=== PATIENT | female | born 1965 | race African-American/Black ===

== ENCOUNTER 2020-02-22 04:19 | Emergency (ER) | payer OTHER ==
[~2020-02-22] VITALS: Ht 157.5 cm; Wt 64.9 kg
[2020-02-22 05:08] VITALS: BP 124/79
[2020-02-22] MEDS ORDERED: PERCOCET 5-3251 EACH PO (05:14)
== END 2020-02-22 05:26 | disposition home or self-care (01) ==
LOC: ER 04:19
DX: S92.502A Displaced unspecified fracture of left lesser toe(s), initial encounter for closed fracture (principal); I10 Essential (primary) hypertension; F17.210 Nicotine dependence, cigarettes, uncomplicated; Z90.89 Acquired absence of other organs; Z98.890 Other specified postprocedural states; Z98.51 Tubal ligation status; Z86.73 Personal history of transient ischemic attack (TIA), and cerebral infarction without residual deficits; Z88.2 Allergy status to sulfonamides; W22.09XA Striking against other stationary object, initial encounter; Y93.89 Activity, other specified; Y92.89 Other specified places as the place of occurrence of the external cause; Y99.8 Other external cause status

== ENCOUNTER 2020-06-19 05:28 | Emergency (ER) | payer OTHER ==
[~2020-06-19] VITALS: Ht 157.5 cm; Wt 62.1 kg
[~2020-06-19 05:28] MED LIST: PERCOCET 5-3251 EACH PO
[2020-06-19 05:31] VITALS: BP 127/79
[2020-06-19] MEDS ORDERED: DOXYCYCLINE 10100 MG PO (05:53)
[2020-06-19] MEDS ORDERED: PREDNISONE50 MG PO (05:53)
== END 2020-06-19 06:12 | disposition home or self-care (01) ==
LOC: ER 05:28
DX: L73.9 Follicular disorder, unspecified (principal); I10 Essential (primary) hypertension; Z86.73 Personal history of transient ischemic attack (TIA), and cerebral infarction without residual deficits; Z98.51 Tubal ligation status; Z90.89 Acquired absence of other organs; Z79.2 Long term (current) use of antibiotics; Z79.899 Other long term (current) drug therapy; Z88.2 Allergy status to sulfonamides

== ENCOUNTER 2020-10-19 16:43 | Emergency (ER) | payer OTHER ==
[~2020-10-19] VITALS: Ht 157.5 cm; Wt 59.0 kg
[~2020-10-19 16:43] MED LIST changes: +DOXYCYCLINE 10100 MG PO; +PREDNISONE50 MG PO
[2020-10-19 16:46] VITALS: BP 134/77
[2020-10-19] MEDS ORDERED: ULTRAM 50MG TAB50 MG PO (17:49)
== END 2020-10-19 18:44 | disposition home or self-care (01) ==
LOC: ER 16:43
DX: S52.592A Other fractures of lower end of left radius, initial encounter for closed fracture (principal); I10 Essential (primary) hypertension; Z79.899 Other long term (current) drug therapy; Z88.2 Allergy status to sulfonamides; Z88.8 Allergy status to other drugs, medicaments and biological substances; W18.39XA Other fall on same level, initial encounter; Y93.89 Activity, other specified; Y92.89 Other specified places as the place of occurrence of the external cause; Y99.8 Other external cause status